=== PATIENT | female | born 1995 | race Caucasian/White ===

== ENCOUNTER 2022-02-02 14:37 | Outpatient (CLI) | payer OTHER, SELFPAY ==
[2022-02-02 15:00] VITALS: BP 132/85; PULSE 106
[2022-02-02 15:22] LABS: Basophils Percent Auto 0.1 % (0.2-1.2); Eosinophils Percent Auto 0.2 % (0-4.4); Hematocrit 37.4 % (37.0-47.0); Hemoglobin 13.5 g/dL (12.0-15.0); Immature Granulocyte Absolute 0.09 K/mm3 (0.00-0.031); Immature Granulocyte Percent A 0.7 % (0-0.5); Lymphocytes Absolute Auto 1.77 K/mm3 (0.9-3.2); Mean Corpuscular HGB Conc 36.1 g/dl (32-36); Mean Corpuscular Hemoglobin 31.3 pg (26-34); Mean Corpuscular Volume 86.6 fl (80-100); Mean Platelet Volume 9.6 fl (7.4-10.4); Monocytes Absolute Auto 0.6 K/mm3 (0.1-0.6); Monocytes Percent Auto 4.3 % (2.6-8.5); Neutrophils Absolute Auto 11.1 K/mm3 (1.3-6.7); Neutrophils Percent Auto 81.7 % (45.5-73.1); Platelet Count Result 204 k/mm3 (150-375); Red Blood Count 4.32 M/mm3 (4.2-5.4); Red Cell Distribution Width 13.8 % (11.5-14.5); White Blood Count 13.6 K/mm3 (4.5-10.0)
[2022-02-02 15:25] LABS: Appearance Urine Clear (Clear); Bilirubin Urine Negative (Negative); Blood Urine Negative (Negative); Color Urine Yellow (Yellow); Glucose Urine UA Negative (Negative); Ketones Urine Negative (Negative); Leukocyte Esterase Ur Negative LEU/UL (NEGATIVE); Nitrate Urine Negative (Negative); Protein Urine Negative (Negative); Urobilinogen Urine 0.2 mg/dL (<2.0); pH Urine 6.5 (5.0-9.0)
[2022-02-02 15:30] VITALS: BP 135/79; PULSE 99
[2022-02-02 15:36] LABS: Alanine Aminotransferase 10 U/L (4-35); Albumin Level 3.6 g/dL (3.5-5.1); Alkaline Phosphatase 159 U/L (38-126); Anion Gap 7 mmol/L (8-16); Aspartate Amino Transferase 19 U/L (14-36); Bilirubin,Total 0.2 mg/dL (0.2-1.3); Blood Urea Nitrogen 6 mg/dL (7-17); Carbon Dioxide 20 mmol/L (22-30); Chloride 107 mmol/L (98-107); Estimated Glomerular Filt Rate > 60; Glucose 77 mg/dL (65-110); Potassium 3.9 mmol/L (3.4-5.0); Sodium 134 mmol/L (137-145); Uric Acid 4.8 mg/dL (2.5-7.5)
[2022-02-02 15:45] VITALS: BP 121/70; PULSE 95
[2022-02-02 15:46] LABS: Mucus Urine Rare /lpf; RBC Urine 0-2 /hpf (0-2); Squamous Epithelial Cell Urine Occasional /hpf (Few); WBC Urine 0-3 /hpf (0-3)
[2022-02-02 15:51] LABS: Add Urine Microscopic? YES
[2022-02-02 16:00] VITALS: BP 132/75; PULSE 99
[2022-02-02 16:15] VITALS: BP 130/73; PULSE 97
[2022-02-02 16:29] LABS: Creatinine Urine 15.9 mg/dL; Total Protein Urine Random 14 mg/dL; Ur Ttl Prot Creatinine Ratio 0.88 mg/mg (0-0.20)
[2022-02-02 16:38] VITALS: BP 132/85; PULSE 102
== END 2022-02-02 16:25 | disposition home or self-care (01) ==
LOC: ANHOBOP 14:44 → ANHLDR 14:46
PROVIDERS: PCP Physician Assistant; Visit Provider Obstetrics & Gynecology
DX: O13.9 Gestational [pregnancy-induced] hypertension without significant proteinuria, unspecified trimester (principal); Z3A.00 Weeks of gestation of pregnancy not specified
CPT/HCPCS: 36415; 59025; 80053; 81001; 82570; 84156; 84550; 85025; 87086; 99199

== ENCOUNTER 2022-02-08 06:19 | Inpatient (IN) | payer OTHER, SELFPAY ==
[2022-02-08] VITALS (111 sets, daily range): BP systolic 69–173; BP diastolic 37–144; PULSE 69–200; RESP 16; TEMP 36.1–37.5; O2SAT 98–100; BMI 34.3
--- NOTE | 2022-02-08 07:11 | LDADM ---
This patient, Nikkie Cheng, was admitted to Labor/Delivery/Recovery 107 on 02/08/22 at 06:19. Plans for labor, pain management and were discussed with patient. Patient/family oriented to hospital policies and general routines including ID bracelet, bed and alarms, visiting hours, pain management, procedures, bathroom and other care routines, personal items, smoking policy, room service/diet and guest tray routines, infant security routines, and visiting hours. Patient/Family are encouraged to report perceived risks to care and to ask questions if they do not understand what they are told or what they should do. See OBIX for further documentation.
[2022-02-08] MEDS: OXYTOCIN 30 UNITS/NS 500 ML 30 UNITS/500 ML BAG IV CONT (07:19)
[2022-02-08] MEDS: LACTATED RINGERS 1,000 ML 125 ML IV CONT ×2 (07:19→15:37)
[2022-02-08 07:34] LABS: Basophils Percent Auto 0.2 % (0.2-1.2); Eosinophils Absolute Auto 0.1 K/mm3 (0-0.3); Eosinophils Percent Auto 0.8 % (0-4.4); Hematocrit 37.8 % (37.0-47.0); Hemoglobin 13.6 g/dL (12.0-15.0); Immature Granulocyte Absolute 0.04 K/mm3 (0.00-0.031); Immature Granulocyte Percent A 0.3 % (0-0.5); Lymphocytes Absolute Auto 2.08 K/mm3 (0.9-3.2); Lymphocytes Percent Auto 18.1 % (18.3-44.2); Mean Corpuscular Hemoglobin 31.3 pg (26-34); Mean Corpuscular Volume 86.9 fl (80-100); Mean Platelet Volume 10.3 fl (7.4-10.4); Monocytes Absolute Auto 0.5 K/mm3 (0.1-0.6); Monocytes Percent Auto 4.4 % (2.6-8.5); Neutrophils Absolute Auto 8.7 K/mm3 (1.3-6.7); Neutrophils Percent Auto 76.2 % (45.5-73.1); Platelet Count Result 221 k/mm3 (150-375); Red Blood Count 4.35 M/mm3 (4.2-5.4); White Blood Count 11.5 K/mm3 (4.5-10.0)
[2022-02-08 07:47] LABS: Alanine Aminotransferase 10 U/L (6-35); Albumin Level 3.9 g/dL (3.5-5.1); Alkaline Phosphatase 170 U/L (38-126); Anion Gap 11 mmol/L (8-16); Aspartate Amino Transferase 21 U/L (14-36); Bilirubin,Total 0.5 mg/dL (0.2-1.3); Blood Urea Nitrogen 8 mg/dL (7-17); Calcium 9.1 mg/dL (8.4-10.2); Carbon Dioxide 18 mmol/L (22-30); Chloride 105 mmol/L (98-107); Estimated CRCL calculation 151 ml/min; Estimated Glomerular Filt Rate > 60; Glucose 145 mg/dL (65-110); Potassium 3.5 mmol/L (3.4-5.0); Sodium 134 mmol/L (137-145)
[2022-02-08 07:48] LABS: Uric Acid 5.2 mg/dL (2.5-7.5)
[2022-02-08 07:49] LABS: Amphetamine Screen Urine Negative (Negative); Barbiturate Screen Urine Negative (Negative); Benzodiazepines Screen Urine Negative (Negative); Cannabinoid Screen Urine Negative (Negative); Cocaine Screen Urine Negative (Negative); Methadone Screen Urine Negative (Negative); Opiate Screen Urine Negative (Negative); Phencyclidine Screen Urine Negative (Negative)
--- NOTE | 2022-02-08 08:40 | WPDOBADMIT ---
Obstetrics - Admit Note Admission Note: record reviewed. Additions to the history and/or subsequent changes in the physical findings follow. 26 y/o at 38 3/7 weeks here for induction of labor due to gestational HTN, worsening bp control. GBS neg. AVSS NST reactive TOCO: contractions irregularly ABD soft, nontender, gravid, vertex EXT nontender Cervix 3/50/-2. AROM with clear fluid. A: IUP at term with gestational HTN. P: Induction of labor with oxytocin. Anticipate .
[2022-02-08 10:35] LABS: Glucose Point of Care 80 mg/dl (65-105)
--- NOTE | 2022-02-08 12:45 | PM.OBPNLAB ---
Pain Control Date/time seen: 02/08/22 13:16 Feeling more contractions. AVSS NST reactive TOCO: contractions every 3-4 min Cervix 4/80/-2. IUPC placed. Continue labor
--- NOTE | 2022-02-08 16:30 | PM.OBPNLAB ---
Pain Control Date/time seen: 02/08/22 16:30 Comfortable with epidural. AVSS NST reactive TOCO: contractions every 3-4 min Cervix /-1 Continue labor.
[2022-02-08] MEDS: ONDANSETRON INJ 4 MG/2 ML VIAL IV PUSH (17:17)
--- NOTE | 2022-02-08 18:59 | PM.OBPRVD ---
OB - Delivery Note Procedure Delivery date: 02/08/22 Procedure: Induction of labor with Events: Gestational Hypertension Induction method: Per Pitocin Protocol Delivery augmentation: Rupture of Membranes Delivery monitor: External FHT, External Uterine and Internal Uterine Laceration Description: Perineal - 2nd Degree Delivery repair: vicryl (3-0) Specimen: Yes (cord blood) Quantitative Blood Loss (ml): 310 Anesthesia type: Epidural Disposition: PACU Complications: Shoulder dystocia Narrative: 26 y/o at 38 3/7 weeks gestation who presented to the hospital for induction of labor. Oxytocin was administered intravenously. Amniotomy was performed with return of clear fluid. She received an epidural for pain control. Her labor progressed and her cervix dilated completely. She pushed with good effort and delivered the infant's head to the perineum. A shoulder dystocia was encountered. Fundal pressure was strictly avoided. McRobert's maneuver was employed. The posterior (right) shoulder was able to be grasped and rotated counterclockwise. The anterior shoulder rotated and the body easily delivered. The nose and mouth were bulb suctioned. After a delay, the cord was clamped and cut. The was handed off the field. Cord blood was collected. The placenta delivered spontaneously and was grossly normal in appearance. The usual 3 vessel cord was noted. A second degree midline perineal laceration was sustained. This was reapproximated using 3 0 Vicryl in the usual layered fashion. Excellent hemostasis resulted as did excellent reapproximation of the normal anatomy. Needle and instrument counts were correct. The patient was taken to recovery room in stable condition. The went to the nursery in stable condition. I was present and scrubbed for the entire delivery. Baby Date of : 02/08/22 Time of : 18:38 Weeks of gestation at delivery: 38 gender: Female Weight (pounds): 8 Weight (ounces): 10 presentation: vertex position: Right Occiput Anterior Placenta delivery description: Spontaneous and Normal Configuration Cord Vessel Description: 3 Vessels and Delayed Cord Clamping score one minute: 8 score five minutes: 9
--- NOTE | 2022-02-08 19:03 | PM.OBDSVD ---
DS: Admitting Diagnosis Discharge Date 02/09/22 Admitting Diagnosis IUP at 38 3/7 weeks Gestational hypertension DS: Discharge Diagnosis Discharge Diagnosis (1) (normal spontaneous vaginal delivery): Code(s): O80 - Encounter for full-term uncomplicated delivery Status: Acute (2) Gestational hypertension: Code(s): O13.9 - Gestational [-induced] hypertension without significant proteinuria, unspecified trimester Status: Acute OB - DS: Summary OB Procedures : PIH Mgmt OB Procedures Intrapartum: Spontaneous Vag Delivery OB Procedures: : None DS: Data Data Completed and Pending Labs on day of discharge: Labs from last 24 hours 02/08/22 02/08/22 02/08/22 10:32 07:21 07:21 WBC RBC Hgb Hct MCV MCH MCHC RDW Plt Count MPV Immature Gran % (Auto) Neut % (Auto) Lymph % (Auto) [place] % (Auto) Eos % (Auto) Baso % (Auto) Lymph # (Auto) [place] # (Auto) Eos # (Auto) Baso # (Auto) Abs Immat Gran (auto) Absolute Neuts (auto) Absolute Nucleated RBC Nucleated RBC % Sodium 134 L Potassium 3.5 Chloride 105 Carbon Dioxide 18 L Anion Gap 11 BUN 8 Creatinine 0.50 L Estim Creat Clear Calc 151 Estimated GFR > 60 Glucose 145 H POC Capillary Glucose 80 Uric Acid Calcium 9.1 Total Bilirubin 0.5 AST 21 ALT 10 Alkaline Phosphatase 170 H Total Protein 7.0 Albumin 3.9 Urine Opiates Screen Negative Urine Methadone Screen Negative Ur Barbiturates Screen Negative Ur Phencyclidine Scrn Negative Ur Amphetamine Screen Negative U Benzodiazepines Scrn Negative Urine Cocaine Screen Negative U Cannabinoids Screen Negative RPR Blood Type Antibody Screen 02/08/22 02/08/22 02/08/22 07:21 07:21 07:21 WBC 11.5 H RBC 4.35 Hgb 13.6 Hct 37.8 MCV 86.9 MCH 31.3 MCHC 36.0 RDW 14.0 Plt Count 221 MPV 10.3 Immature Gran % (Auto) 0.3 Neut % (Auto) 76.2 H Lymph % (Auto) 18.1 L Turner % (Auto) 4.4 Eos % (Auto) 0.8 Baso % (Auto) 0.2 Lymph # (Auto) 2.08 Turner # (Auto) 0.5 Eos # (Auto) 0.1 Baso # (Auto) 0.0 Abs Immat Gran (auto) 0.04 H Absolute Neuts (auto) 8.7 H Absolute Nucleated RBC 0.0 Nucleated RBC % 0.0 Sodium Potassium Chloride Carbon Dioxide Anion Gap BUN Creatinine Estim Creat Clear Calc Estimated GFR Glucose POC Capillary Glucose Uric Acid Calcium Total Bilirubin AST ALT Alkaline Phosphatase Total Protein Albumin Urine Opiates Screen Urine Methadone Screen Ur Barbiturates Screen Ur Phencyclidine Scrn Ur Amphetamine Screen U Benzodiazepines Scrn Urine Cocaine Screen U Cannabinoids Screen RPR Pending Blood Type O Positive Antibody Screen Negative 02/08/22 07:21 WBC RBC Hgb Hct MCV MCH MCHC RDW Plt Count MPV Immature Gran % (Auto) Neut % (Auto) Lymph % (Auto) [place] % (Auto) Eos % (Auto) Baso % (Auto) Lymph # (Auto) [place] # (Auto) Eos # (Auto) Baso # (Auto) Abs Immat Gran (auto) Absolute Neuts (auto) Absolute Nucleated RBC Nucleated RBC % Sodium Potassium Chloride Carbon Dioxide Anion Gap BUN Creatinine Estim Creat Clear Calc Estimated GFR Glucose POC Capillary Glucose Uric Acid 5.2 Calcium Total Bilirubin AST ALT Alkaline Phosphatase Total Protein Albumin Urine Opiates Screen Urine Methadone Screen Ur Barbiturates Screen Ur Phencyclidine Scrn Ur Amphetamine Screen U Benzodiazepines Scrn Urine Cocaine Screen U Cannabinoids Screen RPR Blood Type Antibody Screen Discharge Plan Discharge Attending physician on discharge: London Oropeza Discharging Clinician: London Oropeza Patient Disposition: Home, Self-Care Activity: pelvic re
[2022-02-08] MEDS: OXYTOCIN 30 UNITS/NS 500 ML 30 UNITS/500 ML BAG 125 UNITS IV CONT (19:06)
--- NOTE | 2022-02-08 21:49 | OBPPTRN ---
Patient transferred to post room #287 via wheelchair. Support person present. Oriented to unit, room, information board, rooming in, admission packet and security measures. Patient verbalizes understanding.
[2022-02-08] MEDS: IBUPROFEN 600 MG TABLET PO (23:31)
[2022-02-09 01:00] VITALS: BP 116/75; PULSE 93; RESP 16; TEMP 36.9; O2SAT 97
[2022-02-09 05:00] VITALS: BP 107/77; PULSE 76; RESP 16; TEMP 36.4; O2SAT 98
[2022-02-09] MEDS: IBUPROFEN 600 MG TABLET PO ×2 (05:02→11:11)
[2022-02-09 05:36] LABS: Hematocrit 34.6 % (37.0-47.0); Hemoglobin 11.9 g/dL (12.0-15.0)
[2022-02-09 06:30] LABS: Rapid Plasma Reagin Non-Reactive (NonReactive)
[2022-02-09] MEDS: MULTIVIT/MIN/PREN/FOL AC/IRON TABLET 1 TAB PO (07:45)
[2022-02-09] MEDS: ACETAMINOPHEN 325 MG TABLET 650 MG PO ×2 (07:45→16:28)
[2022-02-09 08:05] VITALS: BP 135/92; PULSE 69; RESP 18; TEMP 36.2; O2SAT 99
--- NOTE | 2022-02-09 08:43 | WPDANLDPN2 ---
Anes-Prog Note L&D Date/Time: 02/09/22 08:43 Comfortable throughout: labor and delivery Neuraxial method: epidural Epidural/Spinal procedure site: clean & non-tender Neuro status: Neuro function grossly intact. Cardiovascular status: normal Respiratory status: normal Airway patency: baseline Mental status: baseline Post-Op hydration status: normal Vital Signs: Last Vital Signs Temp 36.4 C 02/09/22 05:00 Pulse 76 02/09/22 05:00 Resp 16 02/09/22 05:00 BP 107/77 02/09/22 05:00 Pulse Ox 98 02/09/22 05:00 Pain score (VAS): 0 I/O: Intake & Output 02/08/22 02/09/22 02/09/22 23:59 07:59 15:59 Intake Total 1300 800 Output Total 815 650 Balance 485 150 Post-procedural complaints: none Patient feedback: Patient satisfied with anesthetic care.
[2022-02-09 11:49] VITALS: BP 125/79; PULSE 84; RESP 16; TEMP 36.6; O2SAT 98
[2022-02-09 15:30] VITALS: BP 124/79; PULSE 74; RESP 18; TEMP 36.2; O2SAT 99
--- NOTE | 2022-02-09 17:38 | PC.NURSE ---
Patient viewed the discharge video Mother & Baby Care, The First Two Weeks . Patient was given the opportunity and encouraged to ask questions. Patient verbalized understanding of information shared and has been given the mother/baby guide for home reference.
[2022-02-09 18:45] VITALS: BP 122/84; PULSE 90; RESP 18; TEMP 36
[2022-02-12 08:55] VITALS: BP 136/78; PULSE 71; RESP 20; TEMP 36.9; O2SAT 100
== END 2022-02-09 20:13 | disposition home or self-care (01) | DRG 807 ==
LOC: ANHLDR 19:04 → ANHOB2 02-09 19:37 → ANHLDR 02-12 10:40 → ANHOB2 02-12 10:40
PROVIDERS: Admitting Provider Obstetrics & Gynecology; PCP Physician Assistant; Visit Provider Student in an Organized Health Care Education/Training Program
DX: O13.4 Gestational [pregnancy-induced] hypertension without significant proteinuria, complicating childbirth (principal); Z37.0 Single live birth; Z3A.38 38 weeks gestation of pregnancy; O69.81X0 Labor and delivery complicated by cord around neck, without compression, not applicable or unspecified; O70.1 Second degree perineal laceration during delivery; O66.0 Obstructed labor due to shoulder dystocia
CPT/HCPCS: 36415; 80053; 80307; 82948; 84550; 85014; 85018; 85025; 86592; 86850; 86900; 86901; 88307; A9270; J2405; J2590; J2795; J7120

== ENCOUNTER 2022-06-06 12:40 | Outpatient (CLI) | payer OTHER, SELFPAY ==
[2022-06-08 12:26] LABS: NIL 0.01 IU/mL; Quantiferon TB Plus, 1T NEGATIVE (NEGATIVE)
== END 2022-06-06 12:41 | disposition home or self-care (01) ==
LOC: ANHGOSHLAB 12:42
PROVIDERS: PCP Family Medicine; Visit Provider Family Medicine
DX: Z11.1 Encounter for screening for respiratory tuberculosis (principal)
CPT/HCPCS: 36415; 86480

== ENCOUNTER 2022-07-27 07:15 | Emergency (ER) | payer OTHER, SELFPAY ==
--- NOTE | ~2022-07-27 | XR_ITS ---
EXAMINATION: XR chest 1V portable DATE: 07/27/2022 07:49 INDICATION: Upper respiratory tract infection. TECHNIQUE: frontal view of the chest was obtained. COMPARISON: None FINDINGS: Right lung is clear. Subtle opacity left lower lung zone. No pleural effusion or pneumothorax. The ca rdiomediastinal silhouette is normal. Visualized bones and soft tissues are unremarkable. IMPRESSION: 1. Subtle opacity in the left lower lung zone which could represent pneumonia or atelectasis. Reviewed, dictated and finalized at location A. IMPRESSION: 1. Subtle opacity in the left lower lung zone which could represent pneumonia o r atelectasis.
--- NOTE | 2022-07-27 07:25 | ED.URI ---
HPI - URI/Sore Throat General Chief Complaint: Upper Respiratory Infection Stated Complaint: cough x2 weeks? Time Seen by Provider: 07/27/22 07:25 Source: patient and RN notes reviewed Mode of arrival: ambulatory Limitations: no limitations History of Present Illness HPI Narrative: 26 years old white female drove herself to the emergency room because of fever and productive cough over the last 2 weeks, getting worse. Her 2 little kids had similar symptoms a few days ago. Her is asymptomatic. Patient does not take medicine at home. Related Data Allergies Allergy/AdvReac Type Severity Reaction Status Date / Time No Known Allergies Allergy Verified 07/27/22 07:38 Review of Systems Review of Systems: All systems reviewed & are unremarkable except as noted in HPI and below PMFSH Past Medical History Medical History Anxiety Family History Family History Mother Acute myocardial infarction Cerebrovascular accident Type 2 diabetes mellitus Sibling Heart problem Asthma Sibling Heart problem Grandparent Dialysis patient Type 2 diabetes mellitus Social History Social History Smoking status: Never smoker Substance use: former Spiritual care concerns: No Exam Narrative: General appearance: Well-developed, well-nourished Skin: Normal color Head: Normocephalic, nontraumatic Eyes: Clear conjunctiva ENT: Oropharynx normal, ears normal, nose normal Neck: Supple, nontender Chest and respiratory: Airway patent, no respiratory distress, no accessory muscle use Heart: Regular rate/rhythm Abdomen: Soft, nontender, no organomegaly, quiet bowel sounds Vascular: Normal peripheral pulses, normal capillary refill. Musculoskeletal: Normal range of motion, nontender back Neurologic: Alert and oriented ?3, [employer] is normal as tested, no gross motor deficit Course Course Emergency Course: Upper respiratory viral infection with secondary bacterial infection is my concern. Patient received 1 L of normal saline IV, Tylenol, ibuprofen, 1 g Rocephin IV prior to discharge. Vital Signs Vital signs: Vital Signs Temperature 38.3 C H 07/27/22 07:26 Pulse Rate 141 H 07/27/22 07:26 Respiratory Rate 18 07/27/22 07:26 Blood Pressure 142/88 H 10/28/22 07:26 Pulse Oximetry 100 10/28/22 07:26 Oxygen Delivery Room Air 07/27/22 07:26 Temperature 38.8 C H 07/27/22 08:16 Pulse Rate 126 H 07/27/22 08:56 Respiratory Rate 16 07/27/22 08:56 Blood Pressure 123/71 07/27/22 08:56 Pulse Oximetry 97 07/27/22 08:56 Oxygen Delivery Room Air 07/27/22 07:42 MDM - URI/Sore Throat Differential Diagnosis Differential diagnosis: Likely upper respiratory infection, viral infection, bronchitis and other (Pneumonia) Lab Data Result diagrams: 07/27/22 08:56 07/27/22 08:56 Labs: Lab Results 07/27/22 07/27/22 07/27/22 Range/Units 07:38 08:56 08:56 WBC Pending RBC Pending Hgb Pending Hct Pending MCV Pending MCH Pending MCHC Pending RDW Pending Plt Count Pending MPV Pending Immature Gran % (Auto) Pending Neut % (Auto) Pending Lymph % (Auto) Pending [place] % (Auto) Pending Eos % (Auto) Pending Baso % (Auto) Pending Lymph # (Auto) Pending [place] # (Auto) Pending Eos # (Auto) Pending Baso # (Auto) Pending Abs Immat Gran (auto) Pending Absolute Neuts (auto) Pending Absolute Nucleated RBC Pending Nucleated RBC % Pending
[2022-07-27 07:26] VITALS: BP 142/88; PULSE 141; RESP 18; TEMP 38.3; O2SAT 100
--- NOTE | 2022-07-27 07:33 | ECG_ITS ---
Measurements Intervals [place] Rate: 135 P: 42 CA: 135 QRS: 36 QRSD: 83 T: 5 QT: 331 QTc: 497 Interpretive Statements SINUS TACHYCARDIA NONSPECIFIC T-WAVE ABNORMALITY LOW-VOLTAGE QRS IN PRECORDIAL LEADS BORDERLINE ECG NO PREVIOUS ECG AVAILABLE FOR COMPARISON Electronically Signed On 07-27-2022 16:41:46 CDT by Richmond Guthrie M.D.
[2022-07-27 07:42] VITALS: O2SAT 100
[2022-07-27] MEDS: IBUPROFEN 600 MG TABLET PO (07:43)
[2022-07-27] MEDS: ACETAMINOPHEN 325 MG TABLET 650 MG PO (07:43)
[2022-07-27 08:16] VITALS: BP 120/62; PULSE 126; RESP 15; TEMP 38.8; O2SAT 99
[2022-07-27 08:21] LABS: Influenza A QL RT-PCR Negative (Negative); Influenza B QL RT-PCR Negative (Negative); SARS-CoV-2 RNA PCR Negative
[2022-07-27 08:56] VITALS: BP 123/71; PULSE 126; RESP 16; O2SAT 97
[2022-07-27] MEDS: SODIUM CHLORIDE 0.9% IV 1,000 ML 999 ML IV CONT (09:02)
[2022-07-27 09:04] LABS: Basophils Percent Auto 0.2 % (0.2-1.2); Eosinophils Absolute Auto 0.1 K/mm3 (0-0.3); Eosinophils Percent Auto 0.6 % (0-4.4); Hematocrit 37.1 % (37.0-47.0); Hemoglobin 13.3 g/dL (12.0-15.0); Immature Granulocyte Absolute 0.04 K/mm3 (0.00-0.031); Immature Granulocyte Percent A 0.3 % (0-0.5); Lymphocytes Absolute Auto 1.07 K/mm3 (0.9-3.2); Lymphocytes Percent Auto 8.5 % (18.3-44.2); Mean Corpuscular HGB Conc 35.8 g/dl (32-36); Mean Corpuscular Hemoglobin 31.1 pg (26-34); Mean Corpuscular Volume 86.9 fl (80-100); Mean Platelet Volume 9.4 fl (7.4-10.4); Monocytes Absolute Auto 0.7 K/mm3 (0.1-0.6); Monocytes Percent Auto 5.4 % (2.6-8.5); Neutrophils Absolute Auto 10.7 K/mm3 (1.3-6.7); Platelet Count Result 269 k/mm3 (150-375); Red Blood Count 4.27 M/mm3 (4.2-5.4); Red Cell Distribution Width 12.6 % (11.5-14.5); White Blood Count 12.6 K/mm3 (4.5-10.0)
[2022-07-27 09:14] LABS: Alanine Aminotransferase 18 U/L (6-35); Albumin Level 4.5 g/dL (3.5-5.1); Alkaline Phosphatase 63 U/L (38-126); Anion Gap 15 mmol/L (8-16); Aspartate Amino Transferase 21 U/L (14-36); Bilirubin,Total 0.4 mg/dL (0.2-1.3); Blood Urea Nitrogen 9 mg/dL (7-17); Carbon Dioxide 23 mmol/L (22-30); Chloride 101 mmol/L (98-107); Estimated CRCL calculation 120 ml/min; Estimated Glomerular Filt Rate > 60; Glucose 157 mg/dL (65-110); Potassium 4.1 mmol/L (3.4-5.0); Sodium 139 mmol/L (137-145)
[2022-07-27 09:49] VITALS: BP 113/74; PULSE 114; RESP 17; TEMP 37.6; O2SAT 98
== END 2022-07-27 09:57 | disposition home or self-care (01) ==
PROVIDERS: Emergency Provider Emergency Medicine; PCP Family Medicine
DX: J18.8 Other pneumonia, unspecified organism (principal); Z20.822 Contact with and (suspected) exposure to COVID-19
CPT/HCPCS: 36415; 71045; 80053; 85025; 87040; 87502; 93005; 96365; 99284; A9270; J0696; J7030; U0003; U0005

== ENCOUNTER 2022-11-15 07:56 | Outpatient (NON) | payer OTHER, SELFPAY | END 2022-11-15 07:57 | disposition home or self-care (01) | LOC: ANHGOSHLAB 07:57 | PROVIDERS: PCP Family Medicine; Visit Provider Family Medicine | DX: R30.0 Dysuria (principal) | CPT/HCPCS: 87077; 87086; 87186 ==

== ENCOUNTER 2024-05-12 06:43 | Emergency (ER) | payer OTHER, SELFPAY ==
--- NOTE | ~2024-05-12 | CT_ITS ---
EXAMINATION: CT abdomen pelvis w con DATE: 05/12/2024 08:22 INDICATION: Abdominal pain. Nausea and vomiting. TECHNIQUE: Computed tomography (CT) of the abdomen and pelvis was performed with 100 mL Omnipaque 350 intravenous contrast. Automated exposure control and iterative reconstruction technique were employe d. The dose-length product was 531.96 mGy-cm. COMPARISON: None. FINDINGS: The visualized portions of the lung bases demonstrate mild atelectasis. No pleural effusion . The heart size is normal. No pericardial effusion. The liver, gallbladder, spleen, pancreas, adrena l glands, and kidneys are normal. There are no dilated loops of bowel. The appendix is normal. The bl adder is distended. There are no pathologically enlarged lymph nodes. There is physiologic fluid in t he pelvis. The bones are unremarkable. IMPRESSION: 1. No etiology for the patient's symptoms. Reviewed, dictated and finalized at location A.
[2024-05-12 06:54] VITALS: BP 124/81; PULSE 85; RESP 16; TEMP 36.9; O2SAT 100
--- NOTE | 2024-05-12 06:59 | ECG_ITS ---
Test Date: 2024-05-12 07:04:11 Measurements Intervals [place] Rate: 80 P: 21 WI: 135 QRS: 20 QRSD: 88 T: 2 QT: 356 QTc: 413 Interpretive Statements SINUS RHYTHM No previous ECG available for comparison Electronically Signed On 05-12-2024 08:55:14 CDT by Cy Payne M.D.
[2024-05-12 07:09] LABS: Basophils Percent Auto 0.4 % (0.2-1.2); Eosinophils Absolute Auto 0.1 K/mm3 (0-0.3); Eosinophils Percent Auto 1.2 % (0-4.4); Hematocrit 40.6 % (37.0-47.0); Hemoglobin 14.6 g/dL (12.0-15.0); Immature Granulocyte Absolute 0.02 K/mm3 (0.00-0.031); Immature Granulocyte Percent A 0.3 % (0-0.5); Lymphocytes Absolute Auto 1.65 K/mm3 (0.9-3.2); Lymphocytes Percent Auto 22.1 % (18.3-44.2); Mean Corpuscular Volume 86.2 fl (80-100); Mean Platelet Volume 9.5 fl (7.4-10.4); Monocytes Absolute Auto 0.4 K/mm3 (0.1-0.6); Monocytes Percent Auto 4.8 % (2.6-8.5); Neutrophils Absolute Auto 5.3 K/mm3 (1.3-6.7); Neutrophils Percent Auto 71.2 % (45.5-73.1); Platelet Count Result 235 k/mm3 (150-375); Red Blood Count 4.71 M/mm3 (4.2-5.4); Red Cell Distribution Width 12.1 % (11.5-14.5); White Blood Count 7.5 K/mm3 (4.5-10.0)
--- NOTE | 2024-05-12 07:10 | PC.NURSE ---
report to [facility]
[2024-05-12 07:20] LABS: Alanine Aminotransferase 18 U/L (6-35); Albumin Level 4.6 g/dL (3.5-5.1); Alkaline Phosphatase 61 U/L (38-126); Anion Gap 13 mmol/L (4-12); Aspartate Amino Transferase 21 U/L (14-36); Bilirubin,Total 0.7 mg/dL (0.2-1.3); Blood Urea Nitrogen 10 mg/dL (7-17); Carbon Dioxide 21 mmol/L (22-30); Chloride 103 mmol/L (98-107); Estimated CRCL calculation 103 ml/min; Estimated Glomerular Filt Rate > 60; Glucose 155 mg/dL (65-110); Lipase 47 U/L (23-300); Potassium 3.8 mmol/L (3.4-5.0); Sodium 137 mmol/L (137-145)
[2024-05-12] MEDS: LACTATED RINGERS 1,000 ML 999 ML IV CONT (07:21)
[2024-05-12] MEDS: ONDANSETRON INJ 4 MG/2 ML VIAL IV PUSH (07:22)
--- NOTE | 2024-05-12 07:34 | ED.ABDPAIN ---
HPI - Abdominal Pain General Chief Complaint: Abdominal Pain <Zelda Bland MD - Last Filed: 05/12/24 07:37> Stated Complaint: abd pain x3 weeks, n/v <Zelda Bland MD - Last Filed: 05/12/24 07:37> Time Seen by Provider: 05/12/24 07:26 <Zelda Bland MD - Last Filed: 05/12/24 07:37> History of Present Illness HPI narrative: Patient presents with severe periumbilical abdominal pain with nausea vomiting that is slightly relieved by a bowel movement for the last 3 weeks, she had similar symptoms about 6 years ago which she had a broad workup and no obvious diagnosis. Does use marijuana occasionally however the last time she had the symptoms 6 years ago she denies using marijuana at all at the time <Zelda Bland MD - Last Filed: 05/12/24 07:37> Related Data Allergies/Adverse Reactions: Allergies Allergy/AdvReac Type Severity Reaction Status Date / Time No Known Allergies Allergy Verified 05/12/24 06:58 <Zelda Bland MD - Last Filed: 05/12/24 07:37> Review of Systems Review of Systems: All systems reviewed & are unremarkable except as noted in HPI and below <Zelda Bland MD - Last Filed: 05/12/24 07:37> PMFSH Past Medical History Medical History: Medical History Anxiety <Zelda Bland MD - Last Filed: 05/12/24 07:37> Family History Family History: Family History Mother Acute myocardial infarction Cerebrovascular accident Type 2 diabetes mellitus Sibling Heart problem Asthma Sibling Heart problem Grandparent Dialysis patient Type 2 diabetes mellitus <Zelda Bland MD - Last Filed: 05/12/24 07:37> Social History Social History: Social History Smoking status: Never smoker Substance use: former Lack of Transportation: No Lack of Food: Never True Current Housing: I Have Housing Concerned About Future Housing: No Difficulty Paying Gas/Electric Bills: No Difficulty Paying for Meds: No Currently Unemployed: No Education: High School Diploma/GED Difficulty w/ Childcare or Family Care: No Spiritual care concerns: No <Zelda Bland MD - Last Filed: 05/12/24 07:37> Exam Narrative: EXAMINATION OF ORGAN SYSTEMS/BODY AREAS: Constitutional: Vital signs per nursing GENERAL:[No acute distress, non-toxic appearing.] HEAD: Normal with no signs of head trauma. EYES: EOMI, conjunctiva normal ENT: Hearing grossly intact LUNGS: Nonlabored breathing. HEART: [Regular rate and rhythm] ABD: [Soft], [nontender to palpation] EXT: Normal range of motion SKIN: [No rashes or lesions.] NEURO: [Alert and oriented x 3. No gross focal sensory or strength deficits.] PSYCH: Normal affect <Zelda Bland MD - Last Filed: 05/12/24 07:37> Course Vital Signs Vital signs: Vital Signs Temperature 36.9 C 05/12/24 06:54 Pulse Rate 85 05/12/24 06:54 Respiratory Rate 16 05/12/24 06:54 Blood Pressure 124/81 05/12/24 06:54 Pulse Oximetry 100 05/12/24 06:54 Oxygen Delivery Room Air 05/12/24 06:54 Temperature 36.9 C 05/12/24 06:54 Pulse Rate 85 05/12/24 06:54 Respiratory Rate 16 05/12/24 06:54 Blood Pressure 124/81 05/12/24 06:54 Pulse Oximetry 100 05/12/24 06:54 Oxygen Delivery Room Air 05/12/24 06:54 <Zelda Bland MD - Last Filed: 05/12/24 07:37> Vital Signs Temperature 36.9 C 05/12/24 06:54 Pulse Rate 85 05/12/24 06:54 Respiratory Rate 16 05/12/24 06:54 Blood Pressure 124/81 05/12/24 06:54 Pulse Oximetry 100 05/12/24 06:54 Oxygen Delivery Room Air 05/12/24 06:54 Temperature 36.9 C 05/12/24 06:54 Pulse Rate 85 05/12/24 06:54 Respiratory Rate 16 05/12/24 06:54 Blood Pressure 124/81 05/12/24 06:54 Pulse Oximetry 100 05/12/24 06:54 Oxygen Delivery Room Air 05/12/24 06:54 <Missy Dejesus
--- NOTE | 2024-05-12 07:49 | PC.NURSE ---
Assumed care of pt. Pt denies nausea at this time.
[2024-05-12 07:51] LABS: BEDSIDEPREGUCG Negative
[2024-05-12 07:59] LABS: Add Urine Microscopic? YES; Appearance Urine Clear (Clear); Bacteria Urine None Seen /hpf; Bilirubin Urine Negative (Negative); Blood Urine Negative (Negative); Color Urine Yellow (Yellow); Glucose Urine UA Negative (Negative); Ketones Urine Negative (Negative); Leukocyte Esterase Ur Trace LEU/UL (Negative); Nitrate Urine Negative (Negative); Non Pathogenic Casts 0-2; Protein Urine Negative (Negative); RBC Urine 0-2 /hpf (0-2); Specific Grav Ur 1.012 (1.001-1.035); Squamous Epithelial Cell Urine Occasional /hpf (Few); Urobilinogen Urine 0.2 mg/dL (<2.0); WBC Urine 0-5 /hpf (0-3); pH Urine 5.5 (5.0-9.0)
--- NOTE | 2024-05-12 08:46 | PC.NURSE ---
Pt c/o nausea with no relief from Zofran. Dr. Dejesus informed, order received.
[2024-05-12] MEDS: METOCLOPRAMIDE HCL INJ 10 MG/2 ML VIAL IV PUSH (08:52)
[2024-05-12] MEDS: diphenhydrAMINE HCl INJ 50 MG/ML VIAL IV PUSH (08:52)
[2024-05-12] MEDS: LORazepam INJ (*CRX) 2 MG/ML VIAL 1 MG IV PUSH (09:31)
[2024-05-12 09:53] VITALS: BP 119/76; PULSE 84; RESP 16; TEMP 36.6; O2SAT 100
== END 2024-05-12 09:47 | disposition home or self-care (01) ==
PROVIDERS: Emergency Medicine; Emergency Provider Emergency Medicine; PCP Family Medicine
DX: R10.33 Periumbilical pain (principal)
CPT/HCPCS: 36415; 74177; 80053; 81001; 81025; 83690; 85025; 93005; 96361; 96374; 96375; 99284; J1200; J2060; J2405; J2765; J7120; Q9967

== ENCOUNTER 2025-06-23 08:43 | Outpatient (CLI) | payer OTHER, SELFPAY ==
--- OUTSIDE RECORDS SUMMARY | 2025-06-23 09:05 | XMS_ITS | Clinical Summary ---
Author Organization [facility] Address [address] [place] [address] Care Team Providers Care Learning Support Teacher Name Role Phone Unavailable Primary Care Provider Unavailabl e Source Comments [facility],non-owned Affiliates and Associated Physician Practices is amultiple site organization consisting of ambulatory clinics and hospital sitesin [place], [place], [place] and [place]. This disclosure is being madepursuant to the Care Everywhere program and may not contain all information available regarding this patient. Last updated 18.[facility] [employer] Allergies No known active allergies Medications * Be aware that medications may not be up to date on this document. Alwaysverify current medications with the patient. No known medications Family History Medical History Relation Name Comments Diabetes - Type 2 Mother Other - Cardiac Mother DE Relation Name Status Comments Father Alive Mother Alive Social History Tobacco Use Types Packs/Day Years Used Date Smoking Tobacco: Never Smokeless Tobacco: Never Comments No Sex and Gender Information Value Date Recorded Sex Assigned at Not on file Legal Sex Female 2:33 PM EVENTS INTER[employer] Gender Identity Not on file Sexual Orientation Not on file Last Filed Vital Signs Vital Sign Reading Time Taken Comments Blood Pressure 122/80 01/27/2018 4:07 PM CDT Pulse 93 01/27/2018 4:07 PM CDT Temperature 37.1 C (98.7 F) 01/27/2018 4:07 PM CDT Respiratory Rate 16 01/27/2018 4:07 PM CDT Oxygen Saturation 99% 01/27/2018 4:07 PM CDT Inhaled Oxygen Concentration - - Weight 77.1 kg (170 lb) 01/27/2018 4:07 PM CDT Height 160 cm (5' 3) 01/27/2018 4:07 PM CDT Body Mass Index 30.11 01/27/2018 4:07 PM CDT Plan of Treatment Health Maintenance Due Date Last Done Comments HIV SCREENING 2011 HEPATITIS C SCREENING 10/20/2014 DTAP/TDAP/TD VACCINES (1 - Tdap) 2015 HEPATITIS B VACCINE (1 of 3 - 19+ 3-dose series) 2015 HPV VACCINE (1 - 3-dose SCDM series) 2023 DEPRESSION SCREENING 09/30/2024 COVID-19 VACCINE (1 - 2023-2 5 season) 2025 INFLUENZA VACCINE (#1) 2025 ZOSTER VACCINE (1 of 2) 2046 HIB VACCINE Aged Out No longer eligi ble based on patient's age to complete this topic MENINGOCOCCAL (Group B) VACC INE SHARED DECISION-MAKING Aged Out No longer eligibl e based on patient's age to complete this topic MENINGOCOCCAL GROUPS A/C/Y/W VACCINE Aged Out No longer eligible b ased on patient's age to complete this topic PNEUMOCOCCAL VACCINE Aged Out No long er eligible based on patient's age to complete this topic Insurance ANTHEM ANTHEM
--- OUTSIDE RECORDS SUMMARY | 2025-06-23 09:05 | XMS_ITS | Clinical Summary ---
Author Organization [facility] Address [address] [place] [id number] Care Team Providers Care Transportation Technician Name Role Phone Rosalia Zaidi Primary Care Provider + Allergies No known active allergies Medications multivitamin with minerals tablet Take 1 tablet by mouth daily Active cranberry 500 mg capsule Take 1 capsule by mouth every morning Active prochlorperazin e (COMPAZINE) 10 mg tablet Take 1 tablet (10 mg total) by mouth 2 (two) times a day as needed for nausea or vomiting 10 tablet 05/27/2024 Active HYDROcodone-james taminophen (NORCO) 5-325 mg per tabletIndicatio ns:Pain Take 1 tablet by mouth every 6 (six) hours as needed for pain 10 tablet 05/27/2024 Active Active Problems Problem Noted Date Diagnosed Date Abdominal pain 05/13/2024 Supervision of other normal , antepartu m 08/14/2018 Overview (08/14/2018): [] 1hr GCT at 24-28wks [] Flu Shot [] Tdap (27-36wks) [] Genetic Screening: [] Rhogam (if Rh neg): [] GBS at 36 wks: [] [] control method: Social History Tobacco Use Types Packs/Day Years Used Date Smoking Tobacco: Never Smokeless Tobacco: Never Tobacco Cessation:Counseling Given: No [facility] Utilities Answer Date Recorded In the past 12 months has [facility], gas, oil, or water company threatened to shut off services in your home? No 05/14/2024 Social Connection and Isolation Panel Answer Date Recorded In a typical week, how many times do you talk on the phone with family, friends, or neighbors? More than three times a week 05/14/2024 How often do you get togethe r with friends or relatives? More than three times a week 05/14/2024 How often do you attend chur ch or adventist services? Never 05/14/2024 Do you belong to any clubs o r organizations such as hinduism groups, unions, fraternal or athletic groups, or school groups? No 05/14/2024 How often do you attend meet ings of the clubs or organizations you belong to? Never 05/14/2024 Are you , , di vorced, , never , or living with a partner? 05/14/2024 Overall Financial Resource Strain (CARDIA) Answe r Date Recorded How hard is it for you to pa y for the very basics like food, housing, medical care, and heating? Not very hard 05/14/2024 Hunger Vital Sign Answer Date Recorded Within the past 12 months, y ou worried that your food would run out before you got the money to buy more. Never true 05/14/20 24 Within the past 12 months, t he food you bought just didn't last and you didn't have money to get more. Never true 05/14/2024 PRAPARE - Transportation Answer Date Re corded In the past 12 months, has l ack of transportation kept you from medical appointments or from getting medications? No 04/30 In the past 12 months, has l ack of transportation kept you from meetings, work, or from getting things needed for daily living? No 05/14/2024 Housing Stability Vital Sign Answer Wilfredo e Recorded In the last 12 months, was t here a time when you were not able to pay the mortgage or rent on time? No 05/14/2024 In the past 12 months, how m any times have you moved where you were living? 0 05/14/2024 At any time in the past 12 m [facility], were you homeless or living in a chcf (including now)? No 05/14/2024 Personal Safety Answer Date Recorded Have you ever been in or are you currently in a harmful physical or emotional relationship or is someone making you feel afraid or unsafe? 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 Gender Identity Not on file Sexual Orientation Not on file Obstetrics History Para Term AB IAB SAB Ectopic Multiple Livin g Live Births 1 Date Outcome GA Total Labor Labor/2nd/3rd Weight Sex Type Anes PTL Mikayla A1 A5 Name Clin Last Filed Vital Signs Vital Sign Reading Time Taken Comments Blood Pressure 138/78 05/27/2024 5:42 AM CDT Pulse 65 05/27/2024 5:42 AM CDT Temperature 36.4 C (97.6 F) 05/27/2024 5:42 AM CDT Respiratory Rate 16 05/27/2024 5:42 AM CDT Oxygen Saturation 99% 05/27/2024 5:42 AM CDT Inhaled Oxygen Concentration - - Weight 77 kg (169 lb 12.1 oz) 05/26/2024 11:55 P M CDT Height 160 cm (5' 3) 05/26/2024 11:55 PM CDT Body Mass Index 30.07 05/26/2024 11:55 PM CDT Plan of Treatment Health Maintenance Due Date Last Done Comments Cervical Cancer Screening 1996 Depression Screening 1996 Hepatitis C Screening 1996 DTaP/Tdap/Td Vaccine (4 - Tdap) 2007 06/30/1997, 03/25/1997, 01/21/1997 Varicella Vaccines (1 of 2 - 13+ 2-dose series) 2009 Regular Well Visit/Exam 18-64 2014 HPV Vaccines (1 - 3-dose SCD M series) 2023 Influenza Vaccine (#1) 2025 09/15/2018 Hepatitis B Screening Completed 07/07/1997 , 01/21/1997, 1996 Pneumococcal vaccine <65 Aged Out No longer eligible based on patient's age to complete this topic Insurance [facility] Advance Directives For more information, please contact: [phone] * Full Code (Latest Code Status on File) Date Activated Date Inactivated Comments 05/13/2024 3:45 PM 05/15/2024 4:16 PM Care Teams Transportation Technician Relationship Specialty Start Date End Date Rosalia Zaidi DO [address] [place] [address] [place] [address] PCP - General Family Medicine 05/13/24
--- OUTSIDE RECORDS SUMMARY | 2025-06-23 09:05 | XMS_ITS | Encounter Summary ---
Author Organization [facility] Address [address] [place] [place] [address] Care Team Providers Care Can Feeder Name Role Phone Unavailable Primary Care Provider Unavailabl e Encounter Details Date Type Department Care Team (Late st Contact Info) Description 03/14/2020 Lab Requisition [facility] [address] [place] [address] Jovita Cooley DO [address] 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 Gender Identity Not on file Sexual Orientation Not on file documented as of this encounter Plan of Treatment Not on file documented as of this encounter Procedures Procedure Name Priority Date/Time Associated Diagnosis Comments DERMATOPATHOLOGY Routine 03/10/2020 12:0 0 AM CDT documented in this encounter Results * DERMATOPATHOLOGY (03/10/2020 12:00 AM CDT) Case Report Dermatopathology Report Case: [id number] Authorizing Provider: Jovita Cooley DO Collected: 03/10/2020 12:00 AM Ordering Location: [facility] Received: 03/14/2020 01:13 PM Pathologist: Rosalind Cooper MD Specimens: A) - Skin, right upper arm B) - Skin, left axilla 0 3:56 PM CDT DERMATOPATHOLOGY LABORATORY Final Diagnosis Specimen A. SKIN, right upper arm: COMPOUND MELANOCYTIC PROLIFERATION; APPROXIMATES MARGIN (D48.5) (see microscopic description and comment) Specimen B. 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 B: R/O nevus, irritated. 0 3:56 PM CDT DERMATOPATHOLOGY LABORATORY Gross Description Specimen A: Received is one formalin filled container labeled with the patient's name and designated right upper arm. The specimen consists of a shave measuring [id number]. Jar 0. Specimen B: Received is one formalin filled container labeled with the patient's name and designated left axilla. The specimen consists of a shave measuring [id number], bisected. Jar 0. 0 3:56 PM CDT DERMATOPATHOLOGY LABORATORY Microscopic Description Specimen A. SKIN, right upper arm: Sections show a compound melanocytic proliferation. There is a lentiginous proliferation of melanocytes between irregular nests of epithelioid melanocytes that is highlighted by a MART-1/Melan A stain. Scattered melanocytes show evidence of upward migration within the epidermis. In the dermis there are irregular nests of melanocytes that stain in a zonal pattern with HMB-45. p16 staining is retained within the melanocytes. This lesion approximates the margin of the specimen. 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 Because this lesion approximates the margin and the treatment of Spitz nevi is controversial, re-excision of the lesion to ensure complete removal is recommended if clinically feasible. Specimen B. SKIN, left axilla: The epidermis is eroded. There are nests of melanocytes at the dermal-epidermal junction and within the dermis. 0 3:56 PM CDT DERMATOPATHOLOGY LABORATORY Disclaimer An external and internal positive and negative controls are appropriate for the histochemical, immunohistochemical and immunofluorescence stain(s) in this case (if any), except where stated explicitly. The performance characteristics of the stain(s) cited in this report were developed and its performance characteristic determined by the Dermatopathology Laboratory at [facility], directed by Dr. Adryan Terry. These tests need not be, and therefore are not, approved by the [place] Food and Drug Administration. The tests are used for clinical purposes. Billing Codes Specimen Charges Stain Charges 70121 [id number] 1 1 [id number] 1 1 1 0 3:56 PM CDT DERMATOPATHOLOGY LABORATORY Embedded Images 0 3:56 PM CDT DERMATOPATHOLOGY LABORATORY Pathology/Cytology TISSUE SPECIMEN FROM SKIN / Unknown 03/10/2020 03/14/2020 1:13 PM CDT Miscellaneous samples (specimen) TISSUE SPECIMEN FROM SKIN / Unknown 03/10/2020 03/14/2020 1:13 PM CDT us Jovita Cooley DO LAB - PATHOLOGY/CYTOLOGY ORDERABLES Final Result DERMATOPATHOLOGY LABORATORY [facility] - Department of Dermatology [facility] [address], [facility] [phone] documented in this encounter Visit Diagnoses Not on filedocumented in this encounter
[2025-06-23 19:07] LABS: Alanine Aminotransferase 24 U/L (6-35); Albumin Level 4.3 g/dL (3.5-5.1); Alkaline Phosphatase 68 U/L (38-126); Anion Gap 8 mmol/L (4-12); Aspartate Amino Transferase 39 U/L (14-36); Bilirubin,Total 0.2 mg/dL (0.2-1.3); Blood Urea Nitrogen 13 mg/dL (7-17); Calcium 9.3 mg/dL (8.4-10.2); Carbon Dioxide 22 mmol/L (22-30); Chloride 108 mmol/L (98-107); Cholesterol 177 mg/dL (0-200); Estimated Glomerular Filt Rate > 60; Glucose 93 mg/dL (65-110); HDL Direct 40 mg/dL; Potassium 4.2 mmol/L (3.4-5.0); Sodium 138 mmol/L (137-145); Total Protein 7.4 g/dL (6.3-8.2); Triglycerides 203 mg/dL (<150)
[2025-06-23 19:18] LABS: Hemoglobin A1C 4.7 % (<5.7)
[2025-06-23 19:22] LABS: Hematocrit 40.1 % (37.0-47.0); Hemoglobin 14.0 g/dL (12.0-15.0); Immature Granulocyte Percent A 0.2 % (0-0.5); Lymphocytes Absolute Auto 2.32 K/mm3 (0.9-3.2); Mean Corpuscular HGB Conc 34.9 g/dl (32-36); Mean Corpuscular Hemoglobin 30.6 pg (26-34); Mean Corpuscular Volume 87.7 fl (80-100); Nucleated Red Blood Cells Absolute Auto 0.000 K/mm3 (0.0-0.012); Nucleated Red Blood Cells Perc 0.0 % (0.0-0.2); Platelet Count Result 272 k/mm3 (150-375); Red Blood Count 4.57 M/mm3 (4.2-5.4); White Blood Count 8.1 K/mm3 (4.5-10.0)
[2025-06-23 19:48] LABS: Free T4 Free Thyroxine 1.14 ng/dL (0.78-2.19)
[2025-06-23 19:58] LABS: Thyroid Stimulating Hormone 2.650 uIU/mL (0.465-4.680)
== END 2025-06-23 08:44 | disposition home or self-care (01) ==
LOC: ANHGOSHLAB 08:44
PROVIDERS: PCP Family Medicine; Visit Provider Family Medicine
DX: E55.9 Vitamin D deficiency, unspecified (principal); R53.83 Other fatigue; Z13.220 Encounter for screening for lipoid disorders; R73.9 Hyperglycemia, unspecified; E66.3 Overweight
CPT/HCPCS: 36415; 80053; 80061; 82306; 83036; 84439; 84443; 85025